=== PATIENT | male | born 1980 | race Caucasian/White ===

== ENCOUNTER 2016-08-16 00:20 | Emergency (ER) | payer BC ==
[~2016-08-16] VITALS: Ht 190.5 cm; Wt 131.8 kg
[2016-08-16 00:30] VITALS: Ht 190.5 cm; Wt 131.8 kg
[2016-08-16] MEDS ORDERED: SOD CHLORIDE 0.9% 1,000 ML IV STA (00:41)
[2016-08-16] MEDS ORDERED: ALPRAZOLAM 0.25 MG TAB PO ONE (01:00)
[2016-08-16] MEDS ORDERED: IBUP-1542 PO (01:30)
[2016-08-16 01:32] LABS: ALBUMIN 3.8 g/dl (3.3-4.9); CHLORIDE 104 mmol/L (97-110)
[2016-08-16 01:33] LABS: POTASSIUM 3.7 mmol/L (3.5-5.1); SODIUM 142 mmol/L (135-144)
[2016-08-16 01:35] LABS: ANION GAP 18 (8-16); BILIRUBIN,INDIRECT 0.1 mg/dl (0-1.1); BILIRUBIN,TOTAL 0.1 mg/dl (0.2-1.3); CARBON DIOXIDE 24 mmol/L (21-31); CREATININE 0.84 mg/dl (0.61-1.24)
[2016-08-16 01:36] LABS: ALANINE AMINOTRANSFERASE 46 IU/L (13-69); ALBUMIN/GLOBULIN RATIO 1.26; ALKALINE PHOSPHATASE 55 IU/L (42-121); ASPARTATE AMINO TRANSFERASE 25 IU/L (15-46); BLOOD UREA NITROGEN 20 mg/dl (7-20); CALCIUM 9.1 mg/dl (8.4-10.2); GLUCOSE 108 mg/dl (70-220); TOTAL PROTEIN 6.8 g/dl (6.1-8.1)
[2016-08-16 01:37] LABS: BASOPHILS % 0.4 % (0.0-2.0); EOSINOPHILS # 0.2 10^3/ul (0.0-0.5); EOSINOPHILS % 1.9 % (0.0-7.0); HEMATOCRIT 44.8 % (42.0-52.0); HEMOGLOBIN 15.2 g/dl (14.0-18.0); LYMPHOCYTES # 3.3 10^3/ul (0.8-2.9); LYMPHOCYTES % 36.8 % (15.0-51.0); MEAN CORPUSCULAR HEMOGLOBIN 29.5 pg (29.0-33.0); MEAN CORPUSCULAR HGB CONC 33.9 g/dl (32.0-37.0); MEAN PLATELET VOLUME 11.2 fl (7.4-10.4); MONOCYTE # 0.7 10^3/ul (0.3-0.9); MONOCYTES % 7.3 % (0.0-11.0); NEUTROPHIL # 4.8 10^3/ul (1.6-7.5); NEUTROPHILS % 53.4 % (39.0-77.0); PLATELET COUNT 166 10^3/UL (140-415); RED BLOOD COUNT 5.15 10^6/ul (4.70-6.10); RED CELL DISTRIBUTION WIDTH 13.2 % (11.5-14.5); WHITE BLOOD COUNT 9.1 10^3/ul (4.8-10.8)
[2016-08-16 02:00] LABS: TROPONIN-I < 0.012 ng/ml (0.00-0.12)
--- NOTE | 2016-08-16 02:17 | ERD ---
ER Documentation Chief Complaint Date/Time DATE: 08/16/16 TIME: 02:13 Chief Complaint PALPITATIONS/ RAPID HEART RATE HPI 36-year-old man brought in by EMS for complaints of palpitations. He has a long history of recurrent palpitations and has an implanted quality assurance monitor body for the last 8 months, previous monitoring has not found any cardiac dysrhythmias. He denies chest pain or shortness of breath, no fevers or chills, no headache or blurry vision. Patient does have a history of anxiety and uses Lexapro daily , patient states he has been feeling more anxious recently because of his father 's unexpected last month. ROS All systems reviewed and are negative except as per history of present illness. Medications Home Meds Active Scripts Ibuprofen* (Ibuprofen*) 600 Mg Tablet, 600 MG PO Q8 for PAIN AND/OR INFLAMMATION , #30 TAB Prov:PARTHA AMAYA MD 08/16/16 PMhx/Soc Chronic recurrent palpitations Medical and Surgical Hx: pt denies Surgical Hx History of Surgery: No Anesthesia Reaction: No Hx Neurological Disorder: No Hx Respiratory Disorders: No Hx Cardiac Disorders: Yes (IMPLANTED [employer]RET [employer]) Hx Psychiatric Problems: No Hx Miscellaneous Medical Probl: No Hx Alcohol Use: No Hx Substance Use: No Hx Tobacco Use: Yes Smoking Status: Current every day smoker FmHx Coronary artery disease Family History: No diabetes Physical Exam Vitals Vital Signs Date Time Temp Pulse Resp B/P Pulse Ox O2 Delivery O2 Flow Rate FiO2 08/16/16 02:36 98.0 75 18 124/78 100 Room Air 08/16/16 00:30 98.0 69 18 130/83 100 Room Air 08/16/16 00:30 98.0 69 18 130/83 100 Physical Exam GENERAL: Well-developed, well-nourished, appears anxious HEENT: Moist mucous membranes, pink conjunctiva, no cervical spine tenderness or step-off deformities, no goiter, no jaundice or icterus, extraocular movements intact without pain. No submandibular induration, and no pharyngeal erythema NEURO: Alert and oriented 3, cranial nerves II through XII intact bilaterally, pupils equal round reactive to light, no focal deficits or facial asymmetry, sensation intact distally Strength 5/5 in upper and lower extremities bilaterally CARDIAC: Regular rate and rhythm, no murmurs rubs or gallops LUNGS: Clear bilaterally no wheezing crackles or stridor ABDOMEN: Soft nontender, no guarding, no rigidity, no rebound, no psoas sign no obturator sign. Normoactive bowel sounds SKIN: Warm and dry to touch, no abrasions, contusions, or hematomas, no lacerations, no ecchymosis, no target lesions, and without ulcers EXTREMITIES: No clubbing cyanosis or edema, calves are bilaterally symmetrical, no Homans sign, no popliteal cord sign. Distal pulses equal and bilateral PSYCH: Anxious Result Diagram: 08/16/165 08/16/165 Results 24 hrs Laboratory Tests Test 08/16/16 00:45 Alanine Aminotransferase (ALT/SGPT) 46IU/L Albumin 3.8g/dl Albumin/Globulin Ratio 1.26 Alkaline Phosphatase 55IU/L Anion Gap 18 Aspartate Amino Transf (AST/SGOT) 25IU/L Basophils # 0.010^3/ul Basophils % 0.4% Blood Urea Nitrogen 20mg/dl Calcium Level 9.1mg/dl Carbon Dioxide Level 24mmol/L Chloride Level 104mmol/L Creatinine 0.84mg/dl Direct Bilirubin 0.00mg/dl Eosinophils # 0.210^3/ul Eosinophils % 1.9% Globulin 3.00g/dl Glucose Level 108mg/dl Hematocrit 44.8% Hemoglobin 15.2g/dl Indirect Bilirubin 0.1mg/dl Lipase 105U/L Lymphocytes # 3.310^3/ul Lymphocytes % 36.8% Mean Corpuscular Hemoglobin 29.5pg Mean Corpuscular Hemoglobin Concent 33.9g/dl Mean Corpuscular Volume 87.0fl Mean Platelet Volume 11.2fl Monocytes # 0.710^3/ul Monocytes % 7.3% Neutrophils # 4.810^3/ul Neutrophils % 53.4% Nucleated Red Blood Cells # 0.010^3/ul Nucleated Red Blood Cells % 0.0/100WBC Platelet Count 72714^3/UL Potassium Level 3.7mmol/L Red Blood Count 5.1510^6/ul Red Cell Distribution Width 13.2% Sodium Level 142mmol/L Total Bilirubin 0.1mg/dl Total Protein 6.8g/dl Troponin I < 0.012ng/ml White Blood Count 9.110^3/ul Current Medications Medications (Trade) Dose Ordered Sig/David Route PRN Reason Start Time Stop Time Status Last Admin Dose Admin Sodium Chloride (NS) 1,000 ml @ 1,000 mls/hr Q1H STAT IV 08/16/16 00:41 08/16/16 01:40 08/16/16 00:59 Alprazolam (Xanax) 1 mg ONCE ONCE PO 08/16/16 01:00 08/16/16 01:01 DC 08/16/16 00:54 Procedures/MDM IV line was established patient was placed on quality assurance monitor body rhythm strip revealed a sinus rhythm at about 70 bpm with upright P and T waves. I administered 1 L normal saline intravenously and alprazolam 1 mg p.o. EKG performed, read by me: 71 bpm, normal sinus rhythm, normal axis, no acute ST segment changes, narrow QRS complex, with good R-wave progression in precordial leads. CBC and electrolytes were normal, liver function tests were normal, troponin was negative. Patient felt much better, vital signs are normal, he will be discharged for continued outpatient management. Differential diagnoses considered, included but not limited to acute coronary syndrome, pulmonary embolism, aortic dissection, abdominal aortic aneurysm, sepsis, stroke, meningitis, encephalitis, pneumonia, appendicitis, cholecystitis , bowel obstruction, pyelonephritis, nephrolithiasis, cystitis, as well as metabolic, hematologic, and electrolyte abnormalities. As well as abscess, cellulitis, fractures, and dislocations. Patient feels much better at this time, and vital signs are normal, symptoms have improved. I did give strict instructions to return to the ED if symptoms continue or worsen, patient will otherwise follow-up with primary care physician. Patient understood instructions and agreed to plan. Departure Diagnosis: Primary Impression: Palpitations Additional Impression: Anxiety reaction Condition: Good Patient Instructions: Anxiety Reaction, Palpitations PARTHA AMAYA MD Aug 16, 2016 02:17
[2016-08-16 02:36] VITALS: BP 124/78; PULSE 75; RESP 18; TEMP 98
--- NOTE | 2016-08-16 03:41 | RADRPT ---
PROCEDURE: XR Chest. CLINICAL INDICATION: Pain. TECHNIQUE: Single frontal chest x-ray. COMPARISON: 07/07/2008 FINDINGS: The cardiomediastinal silhouette is unremarkable. The lungs are clear. No focal infiltrate is seen. There is no pleural effusion. There is no pneumothorax. The osseous structures are unremarkable. IMPRESSION: 1. No active disease. RPTAT: [facility]VK .Jose Nation MD, MD Date Time Electronically viewed and signed by .Jose Nation MD, on 08/16/2016 03:40 .K/
== END 2016-08-16 02:36 | disposition home or self-care (01) ==
LOC: E/R 00:20
DX: R00.2 Palpitations (principal); F41.1 Generalized anxiety disorder; F17.210 Nicotine dependence, cigarettes, uncomplicated
CPT/HCPCS: 71010; 80053; 83690; 84484; 85025; J7030; 36415; 93005

== ENCOUNTER 2017-07-12 02:48 | Emergency (ER) | END 2017-07-12 04:33 | disposition home or self-care (01) ==

== ENCOUNTER 2018-04-03 18:10 | Emergency (ER) | END 2018-04-03 20:07 | disposition home or self-care (01) ==

== ENCOUNTER 2018-05-09 20:45 | Observation (INO) | END 2018-05-11 11:43 | disposition home or self-care (01) ==